=== PATIENT | female | born 1995 | race Caucasian/White ===

== ENCOUNTER 2023-05-22 12:00 | Emergency (ER) | payer OTHER ==
[~2023-05-22] VITALS: Ht 170.1 cm; Wt 56.7 kg
[2023-05-22 13:37] LABS: BILIRUBIN Negative (Negative); BLOOD 1+ (Negative); CLARITY Cloudy (Clear); COLOR Yellow (Yellow); GLUCOSE Negative (Negative); KETONE Negative (Negative); LEUKO ESTERASE 3+ (Negative); NITRITE Positive (Negative); PH 5.5 (4.5-8.0); SPECIFIC GRAVITY 1.015 (1.001-1.030); UROBILINOGEN 0.2 E.U./dl (0.0-1.0)
[2023-05-22 13:56] LABS: BACTERIA 3+; EPITHELIAL CELLS TNTC
[2023-05-22 13:58] LABS: WBC 31-40 wbc/hpf (0-5)
[2023-05-22] MEDS ORDERED: METRONIDAZOLE 500 MG TAB PO ONE (14:30)
[2023-05-22] MEDS ORDERED: Doxycycline Hyclate 100 MG CAP PO ONE (14:30)
[2023-05-22] MEDS ORDERED: METRONIDAZOLE500 M1 PO (14:31)
[2023-05-22] MEDS ORDERED: VIBRAMYCIN100 MG PO (14:31)
[2023-05-23] MEDS ORDERED: ONDANSETRON4 MG SL (16:26)
== END 2023-05-22 15:08 | disposition home or self-care (01) ==
LOC: ED 12:00
PROVIDERS: Physician Assistant
DX: A59.9 Trichomoniasis, unspecified (principal); R10.2 Pelvic and perineal pain; Z32.02 Encounter for pregnancy test, result negative

== ENCOUNTER 2023-05-23 14:45 | Emergency (ER) | payer OTHER ==
[~2023-05-23 14:45] MED LIST: METRONIDAZOLE500 M1 PO; VIBRAMYCIN100 MG PO
[2023-05-23] MEDS ORDERED: diphenhydrAMINE hydrochloride 50 MG/ML VIAL IV ONE (14:50)
[2023-05-23] MEDS ORDERED: Metoclopramide Hydrochloride 10 MG/2 ML AMP IV ONE (14:50)
[2023-05-23 15:09] LABS: BASO % 0.3 % (0.0-1.0); EOS % 0.1 % (1.0-4.0); HEMATOCRIT 34.2 % (37.0-47.0); LYMPH # 0.4 10*3/uL (1.3-4.4); MEAN CELL VOLUME 92.7 fl (81.0-99.0); MEAN CORPUSCULAR HGB 30.9 pg (27.0-31.0); MEAN CORPUSCULAR HGB CONC 33.3 g/dl (33.0-37.0); MEAN PLATELET VOLUME 9.7 fl (9.6-12.3); MONO # 0.8 10*3/uL (0.1-1.0); MONO % 8.9 % (3.0-9.0); NEUT # 8.1 10*3/uL (2.3-7.9); NEUT % 85.8 % (47.0-73.0); PLATELET COUNT AUTOMATED 140 10*3/uL (130-400); RED BLOOD COUNT 3.69 10*6/uL (4.10-5.10); RED CELL DISTRI WIDTH 12.7 % (0-14.5); WHITE BLOOD COUNT 9.5 10*3/uL (4.8-10.8)
[2023-05-23 15:32] LABS: ALKALINE PHOSPHATASE 47 U/L (46-116); BUN 13 mg/dl (9-23); CHLORIDE 109 mmol/L (98-107); ETHYL ALCOHOL < 3.0 mg/dl (<3); POTASSIUM 3.8 mmol/L (3.4-5.1); SGPT/ALT 30 U/L (5-49); TOTAL PROTEIN 7.4 gm/dL (6.0-8.0)
[2023-05-23 15:50] LABS: URINE AMPHETAMINES Negative (1000ng/ml); URINE BARBITURATES Negative (200ng/ml); URINE BENZODIAZEPINES Negative (200ng/ml); URINE CANNABINOIDS (THC) Positive (50ng/ml); URINE COCAINE Negative (300ng/ml); URINE METHADONE Negative (300ng/ml); URINE OPIATES Negative (300ng/ml); URINE PHENCYCLIDINE Negative (25ng/ml)
[2023-05-23] MEDS ORDERED: ONDANSETRON4 MG SL (16:26)
== END 2023-05-23 16:38 | disposition home or self-care (01) ==
LOC: ED 14:45
PROVIDERS: Internal Medicine
DX: R11.2 Nausea with vomiting, unspecified (principal); T37.8X5A Adverse effect of other specified systemic anti-infectives and antiparasitics, initial encounter; F17.210 Nicotine dependence, cigarettes, uncomplicated; Z79.2 Long term (current) use of antibiotics; Z79.899 Other long term (current) drug therapy; Y92.89 Other specified places as the place of occurrence of the external cause